=== PATIENT | male | born 1965 | race Caucasian/White ===

== ENCOUNTER 2017-10-01 15:23 | Outpatient (CLI) | payer OTHER | END 2017-10-01 15:24 | disposition short-term general hospital (02) | LOC: EMS 15:23 | PROVIDERS: ATTEND Surgery | DX: R07.9 Chest pain, unspecified (principal); R20.2 Paresthesia of skin; R03.0 Elevated blood-pressure reading, without diagnosis of hypertension | CPT/HCPCS: A0425; A0427 ==

== ENCOUNTER 2021-04-19 14:16 | Outpatient (CLI) | payer OTHER | END 2021-04-19 14:17 | disposition short-term general hospital (02) | LOC: EMS 14:16 | DX: R42 Dizziness and giddiness (principal); R20.0 Anesthesia of skin | CPT/HCPCS: A0425; A0429 ==

== ENCOUNTER 2022-11-24 16:28 | Emergency (ER) | payer OTHER ==
[2022-11-24 16:36] VITALS: BP 137/89
[2022-11-24] MEDS ORDERED: SULFAMETH/TRIMETH DS 800/160 MG TABLET PO STA (17:03)
--- NOTE | 2022-11-24 17:03 | ED Physician Documentation ---
History of Present Illness - Stated complaint Stated Complaint: R FINGER SWELLING - Chief complaint Chief Complaint: Wound - Additonal information Additional information: 57-year-old male presents emergency department for evaluation of swelling and tenderness to the distal tip of his right ring finger. He is a nail biter. Symptoms began about 2 days ago along the proximal cuticle edge. No history of similar. No fevers. Review of Systems Skin: reports: Lesions PD PAST MEDICAL HISTORY - Past Medical History Past Medical History: Yes Cardiovascular: High cholesterol, Coronary artery disease Respiratory: None Neuro: None Endocrine/Autoimmune: None GI: None : None HEENT: None Psych: None Musculoskeletal: None Derm: None - Past Surgical History Past Surgical History: Yes Cardiovascular: Coronary stent - Present Medications Home Medications: Ambulatory Orders Medication Instructions Recorded Confirmed Aspirin 81 mg ORAL DAILY 12/03/14 12/03/14 Saccharomyces Boulardii [Florastor] 500 mg PO BIDWM #20 capsule 12/03/14 Simvastatin 20 mg ORAL DAILY 12/03/14 12/03/14 Sulfamethox/Trimeth 800/160 1 each PO BID #14 tablet 11/24/22 [Bactrim Ds 800/160] - Allergies Allergies/Adverse Reactions: Allergies Allergy/AdvReac Type Severity Reaction Status Date / Time No Known Drug Allergies Allergy Verified 11/24/22 16:36 - Social History Does the pt smoke?: Yes Smoking Status: Current every day smoker Does the pt drink ETOH?: Yes Does the pt have substance abuse?: No - Immunizations Immunizations: TDAP >10years/unknown - POLST Patient has POLST: No PD ED PE EXPANDED - General General: Alert, No acute distress - Extremities Extremities: Right finger(s) (Right ring finger with distal erythema and tenderness. Obvious area of fluctuance across the cuticle bed with small amount of purulence draining. Patient does have a soft fat pad. Painful flexion at DIP joint. Preserved flexion extension at MCP and PIP joint. No tenderness with passive flexion e) Results - Vitals Vitals: Vital Signs - 24 hr 11/24/22 16:34 Temperature 36 C L Heart Rate 81 Respiratory 16 Rate Blood Pressure 137/89 H O2 Saturation 97 Oxygen O2 Source Room air Procedures - Abscess I&D (location) Right index finger paronychia Preparation: Betadine Incision: Incised with scalpel, Purulent drainage Other: Pt tolerated well, Dressing applied, Antibiotic prescribed PD Medical Decision Making - ED course Complexity details: reviewed results, re-evaluated patient, d/w patient ED course: 57-year-old male, nondiabetic, presents emergency department for evaluation of 2 days swelling and erythema to the distal tip of his right ring finger. Swelling begins at the proximal cuticle. History and exam is consistent with a paronychia. We did do a sterile incision and drainage at the bedside with small amount of purulence drained. Patient will be started on Bactrim. Advised warm compress salt water soaks. We discussed the usual emergent return precautions for concerns of worsening infection. Advised against biting his nails. Departure - Departure Disposition: Home, Self Care Clinical Impression: Paronychia Condition: Stable Record reviewed to determine appropriate education?: Yes Prescriptions: Sulfamethox/Trimeth 800/160 [Bactrim Ds 800/160] 1 each PO BID #14 tablet Comments: Raul golden came to the emergency department because for 2 days you have had swelling at the distal tip of your right ring finger. You do endorse biting her nails. You had an infection under the cuticle called a paronychia. We did do an incision and drainage of this at the bedside. A moderate amount of purulent fluid drained from this. I would like to start you on an antibiotic called Bactrim[place] twice daily for the neck 7 days. I would like you to soak your finger in warm Epsom salt solution for 10 minutes 2-3 times a day. Then apply any thin layer of bacitracin or triple antibiotic ointment to the wound. With the antibiotics and salt soaks or warm compresses I would expect the finger to be feeling much better over the next 72 hours. If not improving, you develop significant finger swelling, redness or have any fevers or red streaking please return to the ER for repeat evaluation
== END 2022-11-24 17:18 | disposition home or self-care (01) ==
LOC: ED 16:28
DX: L03.011 Cellulitis of right finger (principal); F17.200 Nicotine dependence, unspecified, uncomplicated
CPT/HCPCS: 10060; 99282; A9270